=== PATIENT | female | born 1950 | race Caucasian/White ===

== ENCOUNTER 2017-07-12 10:23 | Observation (INO) | payer OTHER ==
[2017-07-12] MEDS ORDERED: PHENAZOPYRIDINE HCL 100 MG TAB PO ONE (12:25)
[2017-07-12] MEDS ORDERED: ceFAZolin 2 GM/DEXTROSE 100 ML IV ONE (12:25)
[2017-07-12] MEDS ORDERED: LIDOCAINE 1% 2 ML INJ ID PRN (12:26)
[2017-07-12] MEDS ORDERED: LR 1,000 ML IV ONE (12:26)
--- NOTE | 2017-07-12 13:38 | PDHPUP ---
History & Physical Update H&P update statement: This history and physical update is based on an assessment of the patient which was completed after admission or registration (within 24 hours), but prior to the surgery/procedure. H&P update: H&P reviewed & patient examined, no change in patient's condition since H&P completed
[2017-07-12] MEDS ORDERED: MIDAZOLAM 2 MG/2 ML VIAL ONE (14:17)
[2017-07-12] MEDS ORDERED: fentaNYL 100 MCG/2 ML INJ ONE ×2 (14:17→15:05)
[2017-07-12] MEDS ORDERED: PROPOFOL/EMULSION 500 MG/50 ML BOTTLE IV ONE (14:17)
[2017-07-12] MEDS ORDERED: BUPIVACAINE 0.5% 30 ML SDV ONE (14:20)
[2017-07-12] MEDS ORDERED: KETOROLAC 30 MG/1 ML SDV ONE (14:33)
[2017-07-12] MEDS ORDERED: SUGAMMADEX SODIUM 200 MG/2 ML VIAL IVP ONE (14:33)
[2017-07-12] MEDS ORDERED: ONDANSETRON 4 MG/2 ML VIAL ONE ×2 (14:33→17:44)
[2017-07-12] MEDS ORDERED: METOCLOPRAMIDE 10 MG/2 ML VIAL ONE (14:33)
[2017-07-12] MEDS ORDERED: RANITIDINE 50 MG/2 ML VIAL ONE (14:33)
[2017-07-12] MEDS ORDERED: epHEDrine SULFATE 10 MG/ML SYR ONE (14:33)
[2017-07-12] MEDS ORDERED: DEXAMETHASONE 4 MG/ML VIAL ONE (14:33)
[2017-07-12] MEDS ORDERED: LIDOCAINE 2% 5 ML SDV ONE (14:33)
[2017-07-12] MEDS ORDERED: ROCURONIUM 50 MG/5 ML VIAL ONE (14:33)
--- NOTE | 2017-07-12 14:49 | PDANEPAE ---
ANE Past Medical History - Cardiovascular History Hx Hypertension: No Hx Arrhythmias: No Hx Chest Pain: No Hx Coronary Artery / Peripheral Vascular Disease: No Hx CHF / Valvular Disease: No Hx Palpitations: No - Pulmonary History Hx COPD: No Hx Asthma/Reactive Airway Disease: No Hx Recent Upper Respiratory Infection: No Hx Oxygen in Use at Home: No Hx Sleep Apnea: No Sleep Apnea Screening Result - Last Documented: Negative - Neurologic History Hx Cerebrovascular Accident: No Hx Seizures: No Hx Dementia: No - Endocrine History Hx Diabetes: No - Renal History Hx Renal Disorders: Yes Renal History Comment: STRESS INCONT - Liver History Hx Hepatic Disorders: No - Neurological & Psychiatric Hx Hx Neurological and Psychiatric Disorders: No - Cancer History Hx Cancer: No - Congenital Disorder History Hx Congenital Disorders: No - GI History Hx Gastrointestinal Disorders: No - Other Health History Other Health History: CYSTOCELE. RECTOCELE - Chronic Pain History Chronic Pain: No - Surgical History Prior Surgeries: BLADDER SUSPENSION . HENNY BUNIONECTOMY. AT [facility] Review of Systems Review of Systems: - Exercise capacity METS (RN): 4 METS ANE Patient History - Allergies Allergies/Adverse Reactions: latex Allergy (Verified 05/19/17 11:19) - Home Medications Home Medications: Herbals/Supplements -Info Only 1 ea PO DAILY 05/19/17 [Last Taken 3 Days Ago ~] - NPO status NPO Since - Liquids (Date): 07/12/17 NPO Since - Liquids (Time): 10:45 NPO Since - Solids (Date): 07/11/17 NPO Since - Solids (Time): 20:00 - Smoking Hx Smoking Status: Former smoker ANE Labs/Vital Signs - Vital Signs Blood Pressure: 125/75 Heart Rate: 56 Respiratory Rate: 20 O2 Sat (%): 95 Height: 165.1 cm Weight: 61.235 kg ANE Physical Exam - Airway Mallampati Score: Class 1 Mouth exam: normal dental/mouth exam - Pulmonary Pulmonary: no respiratory distress, no rales or rhonchi, clear to auscultation - Cardiovascular Cardiovascular: regular rate and rhythym, no murmur, rub, or gallop - ASA Status ASA Status: II ANE Anesthesia Plan Anesthesia Plan: general endotracheal anesthesia
[2017-07-12] MEDS ORDERED: ROCURONIUM 100 MG/10 ML VIAL ONE (15:37)
[2017-07-12] MEDS ORDERED: ALBUTEROL 3 ML DEYVIAL IH PRN (16:06)
[2017-07-12] MEDS ORDERED: LR 500 ML IV PRN (16:06)
[2017-07-12] MEDS ORDERED: NALOXONE HCL 0.4 MG/ML INJ IVP PRN (16:06)
[2017-07-12] MEDS ORDERED: MEPERIDINE 25 MG/ML SYR IVP PRN (16:06)
[2017-07-12] MEDS ORDERED: DEXAMETHASONE 4 MG/ML VIAL IVP PRN (16:06)
[2017-07-12] MEDS ORDERED: METOCLOPRAMIDE 10 MG/2 ML VIAL IVP PRN (16:06)
[2017-07-12] MEDS ORDERED: ONDANSETRON 4 MG/2 ML VIAL IVP PRN ×2 (16:06→17:03)
[2017-07-12] MEDS ORDERED: PROMETHAZINE HCL 25 MG/ML INJ IVP PRN ×2 (16:06→17:06)
[2017-07-12] MEDS ORDERED: fentaNYL 100 MCG/2 ML INJ IVP PRN (16:06)
[2017-07-12] MEDS ORDERED: OXYCODONE/APAP 5/325 TAB PO PRN (17:03)
[2017-07-12] MEDS ORDERED: HYDROCODONE/APAP 5/325 TAB PO PRN (17:03)
[2017-07-12] MEDS ORDERED: HYDROmorphONE/DILAUDID 1 MG/ML INJ IVP PRN (17:06)
[2017-07-12] MEDS ORDERED: DIAZEPAM 10 MG/2 ML SYR IVP PRN (17:06)
[2017-07-12] MEDS ORDERED: LR 1,000 ML IV SCH (17:30)
[2017-07-12] MEDS ORDERED: PROMETHAZINE HCL 25 MG/ML INJ ONE (17:56)
[2017-07-12] MEDS ORDERED: MEPERIDINE 25 MG/ML SYR ONE (18:09)
[2017-07-12] MEDS: DOCUSATE SODIUM 100 MG CAP PO SCH (20:48)
[2017-07-12] MEDS: SIMETHICONE 80 MG TAB CHEW PO SCH ×2 (20:48→23:23)
[2017-07-12] MEDS: KETOROLAC 15 MG/1 ML SDV IVP SCH (23:24)
--- NOTE | 2017-07-13 05:26 | GOP ---
[f rep st] OPERATIVE REPORT DATE OF OPERATION: 07/12/2017 SURGEON: Davy Baptiste MD WIRE COINER: Tri Mallory CFA. ANESTHESIA: General. PREOPERATIVE DIAGNOSIS: 1. Cystocele. 2. Uterine prolapse. 3. Rectocele. 4. Stress urinary incontinence. 5. Fecal incontinence. POSTOPERATIVE DIAGNOSIS: 1. Cystocele. 2. Uterine prolapse. 3. Rectocele. 4. Stress urinary incontinence. 5. Fecal incontinence. PROCEDURE PERFORMED: 1. Robotic assisted laparoscopic hysterectomy, bilateral salpingectomy. 2. Robotic assisted laparoscopic sacrocervicopexy with mesh. 3. Repair of cystocele and rectocele. 4. Transobturator sling. 5. Anal sphincteroplasty. 6. Perineoplasty. 7. Cystoscopy. FINDINGS: SPECIMENS: Uterus, bilateral tubes. ESTIMATED BLOOD LOSS: 20 mL. DESCRIPTION OF PROCEDURE: The patient was taken the operating room where she was identified. General anesthesia was administered and found to be adequate. She was placed in the lithotomy position and prepared and draped in normal sterile fashion. A Tatum catheter was placed in her bladder. A 1 cm infraumbilical incision was made with a scalpel. The Veress needle with CO2 gas flowing was advanced into the peritoneal cavity. The abdomen was then insufflated with carbon dioxide gas. The 12 mm trocar followed by the laparoscope was then inserted. The upper abdomen was unremarkable. Two lateral ports placed on either side under direct visualization. She then was placed in Trendelenburg position and the da Angie robot docked on the left side. The instruments were then brought into the abdominal cavity under direct visualization. The sigmoid colon was adherent to the left pelvic brim, adnexa and left ovarian fossa. It was taken down sharply. The uterus tubes and ovaries were otherwise grossly unremarkable. The left fallopian tube was along the mesosalpinx. The utero-ovarian ligament, followed by the round ligament were then cauterized and transected. The anterior leaf of the broad ligament was then incised over the left uterine vessels and across the cervix. The bladder was then gently dissected off the cervix and upper vagina. The left uterine vasculature was then cauterized and transected. The exact same procedure was performed on the patient's right side. The uterus was then bivalved to aid in removal through the umbilicus. The uterus and up to 2/3 of the cervix were amputated from the lower third of the cervix with the hot thais. The specimen was placed in the right upper quadrant for later removal. The Colpo-Probe was then placed in the vagina. The bladder was further dissected off the anterior vaginal wall down to the level of the bladder neck. The rectovaginal space was then entered and the rectum dissected off the posterior vaginal wall down to the level of the perineal body. Measurements were then obtained and the mesh trimmed to size. The peritoneum over the sacral promontory was incised. The fat pad was gently dissected off the anterior longitudinal ligament. The mesh was then brought into the abdominal cavity. Three sutures of 4-0 Bruno-Derrek were used to attach the distal posterior mesh to the perineal body. Two additional rows of Bruno- Derrek sutures were placed posteriorly. Three rows were placed anteriorly to suture the anterior arm of the mesh down to the level of the bladder neck and laterally to the paravaginal tissue. The Colpo-Probe was then removed. The sacral arm of the mesh was placed over the promontory and the tension adjusted. I then scrubbed back into the case to examine the vagina. The tension was further adjusted to resolve the cystocele and rectocele without undue tension on the vagina. Two sutures of 2-0 Bruno-Derrek were used to attach the sacral arm of the mesh to the anterior longitudinal ligament at the level of the upper first sacral vertebral body below the intervertebral disk space. The excess mesh was then trimmed. The peritoneum was then closed over the entire mesh with 3-0 V-Loc 90 suture. The robot was then undocked. The specimen removed through the umbilicus. The fascia was closed with 0 Vicryl, skin with 4-0 Monocryl and surgical adhesive. Attention was then turned to the sling portion of the procedure. A mid urethral incision was made with a scalpel. Tunnels were created bilaterally up to the obturator internus muscles. Skin incisions were made over the obturator notches. The Halo trocar was placed through the left skin incision, redirected around the ischial pubic rami and down through the vaginal incision using a vaginal finger as our guide. The lateral sulci were examined and no evidence of vaginal injury had occurred. The sling was then attached and brought out on same course. The exact same procedure was performed on the patient's right side. The sling was then adjusted to allow a small mid urethral gap. The vaginal epithelium was closed with 2-0 Vicryl. The skin with 4-0 Monocryl. Cystoscopy was then performed. Both ureters had vigorous jets of urine. There was no evidence of bladder nor urethral injury seen. No mesh nor suture was seen within the bladder nor urethra. No obvious pathology was seen. A transverse incision was then made along the perineal body. The posterior vaginal epithelium was undermined with the Metzenbaum scissors and incised sagittally. The epithelium was then gently dissected off the underlying rectovaginal connective tissue. The dissection was then carried down towards the anus. The ends of a thinned external anal sphincter muscle were then gently dissected free bilaterally. An overlapping sphincteroplasty was then performed with interrupted sutures of 0 Vicryl. The posterior rectovaginal connective tissue was then also plicated in the midline with interrupted sutures of 0 Vicryl. The transverse perineal muscle, and bulbous spongiosis muscle were plicated in the midline. The excess of epithelium was then trimmed. The vaginal epithelium was closed with a running 2-0 Vicryl suture. The skin overlying the perineal body and anal sphincter were closed with interrupted sutures of 0 Vicryl. Vaginal packing was then placed. Anesthesia was reversed and patient taken the PACU awake, in stable condition. SURGEON: Davy Baptiste MD COMPLICATIONS: None. DISPOSITION: Patient stable to PACU. /[id number]/MODL MTDD
[2017-07-13 05:51] LABS: HEMOGLOBIN 12.1 g/dL (12.6-16.3)
[2017-07-13 06:13] VITALS: RESP 16
[2017-07-13] MEDS: KETOROLAC 15 MG/1 ML SDV IVP SCH (07:23)
[2017-07-13 08:52] VITALS: BP 90/60; PULSE 66; TEMP 98.4; O2SAT 94
[2017-07-13] MEDS: DOCUSATE SODIUM 100 MG CAP PO SCH (10:16)
[2017-07-13] MEDS: SIMETHICONE 80 MG TAB CHEW PO SCH (10:57)
--- NOTE | 2017-07-14 08:18 | GDS ---
[f rep st] DISCHARGE SUMMARY DISCHARGE DIAGNOSES: 1. Uterovaginal prolapse. 2. Stress urinary incontinence. 3. Fecal incontinence. PROCEDURES: 1. Robotic-assisted laparoscopic hysterectomy, bilateral salpingectomy. 2. Robotic-assisted laparoscopic sacrocervicopexy with mesh. 3. Transobturator sling. 4. Anal sphincteroplasty. 5. Cystoscopy. HISTORY: The patient is a 67-year-old female with symptomatic prolapse. She was taken to the operat ing room on 07/12/2017 where she underwent the above-mentioned procedures without complications. Her postoperative course was uneventful. The morning after surgery, she was ambulating, voiding, and tolerating a general diet. She had minimal pain. She was discharged home on postoperative day #1 i n good condition. She was discharged home with ibuprofen and Tylenol for pain. She had a followup a ppointment in the office 2 weeks after discharge. /[id number]/MODL
== END 2017-07-13 10:58 | disposition home or self-care (01) ==
LOC: F3E 11:51 → FOB 18:45
PROVIDERS: ADMIT Obstetrics & Gynecology; ATTEND Obstetrics & Gynecology
PROC: 0TQB4ZZ Repair Bladder, Percutaneous Endoscopic Approach (ICD-10-PCS; principal; 2017-07-12 13:45)
PROC: 0UT74ZZ Resection of Bilateral Fallopian Tubes, Percutaneous Endoscopic Approach (ICD-10-PCS; principal; 2017-07-12 13:45)
PROC: 0DQR0ZZ Repair Anal Sphincter, Open Approach (ICD-10-PCS; principal; 2017-07-12 13:45)
PROC: 0WQN0ZZ Repair Female Perineum, Open Approach (ICD-10-PCS; principal; 2017-07-12 13:45)
PROC: 0UQG4ZZ Repair Vagina, Percutaneous Endoscopic Approach (ICD-10-PCS; principal; 2017-07-12 13:45)
PROC: 0TUC0JZ Supplement Bladder Neck with Synthetic Substitute, Open Approach (ICD-10-PCS; principal; 2017-07-12 13:45)
PROC: 0UT94ZZ Resection of Uterus, Percutaneous Endoscopic Approach (ICD-10-PCS; principal; 2017-07-12 13:45)
PROC: 8E0W4CZ Robotic Assisted Procedure of Trunk Region, Percutaneous Endoscopic Approach (ICD-10-PCS; principal; 2017-07-12 13:45)
DX: N81.3 Complete uterovaginal prolapse (principal); N39.3 Stress incontinence (female) (male); R15.9 Full incontinence of feces
CPT/HCPCS: 46750; 56810; 57288; 57423; 58542; C1763; C1771; J0690; J1100; J1885; J2250; J2405; J2550; J2704; J2765; J2780; J3010

== ENCOUNTER 2018-07-16 18:14 | Emergency (ER) | payer OTHER ==
[2018-07-16] MEDS ORDERED: PROPARACAINE/FLUORESCEIN SOD 5 ML OPHT.BTL ONE (19:42)
[2018-07-16] MEDS ORDERED: OFLOXACIN 0.3% SOLN PREPACK OPHT.BTL TAKEHOME ONE (19:54)
--- NOTE | 2018-07-16 19:56 | EDPHY ---
H & P Stated Complaint: POKED SELF IN EYE WITH STALK OF GRASS/?BLEEDING Time Seen by Provider: 07/16/18 19:45 HPI/ROS: CHIEF COMPLAINT: Eye injury HISTORY OF PRESENT ILLNESS: Patient is a 68-year-old female who comes to the emergency department complaining of a eye injury to her left eye. She states that she was bending over in the tall grass in [employer] when a stock of grass poked her in the left eye. She has significant hemorrhage of the conjunctiva. She also felt she might have a foreign body. She states that her vision has not changed. She does were glasses which she was wearing at the time. No contacts. No other injuries. Severity: Moderate Modifying factors: None REVIEW OF SYSTEMS: Constitutional: denies: chills, fever, recent illness, recent injury EENTM: See HPI Respiratory: denies: cough, shortness of breath Cardiac: denies: chest pain, irregular heart rate, lightheadedness, palpitations Gastrointestinal/Abdominal: denies: abdominal pain, diarrhea, nausea, vomiting, blood streaked stools Genitourinary: denies: dysuria, frequency, hematuria, pain Musculoskeletal: denies: joint pain, muscle pain Skin: denies: lesions, rash, jaundice, bruising Neurological: denies: headache, numbness, paresthesia, tingling, dizziness, weakness Hematologic/Lymphatic: denies: blood clots, easy bleeding, easy bruising Immunologic/allergic: denies: HIV/AIDS, transplant 10 systems reviewed and negative except as noted EXAM: GENERAL: Well-appearing, well-nourished and in no acute distress. HEAD: Atraumatic, normocephalic. EYES: Visual acuities baseline, subconjunctival on the left eye nasal aspect 180 degrees. Some hematoma. Minimal better drainage that is now dry. Examined with fluorescein and slit lamp. Small corneal abrasion also seen. Negative Amari sign. Pupils equal round and reactive to light, extraocular movements intact, ENT: TMs normal, nares patent, oropharynx clear without exudates. Moist mucous membranes. NECK: Normal range of motion, supple without lymphadenopathy or JVD. LUNGS: Breath sounds clear to auscultation bilaterally and equal. No wheezes rales or rhonchi. HEART: Regular rate and rhythm without murmurs, rubs or gallops. ABDOMEN: Soft, nontender, normoactive bowel sounds. No guarding, no rebound. No masses appreciated. BACK: No CVA tenderness, no spinal tenderness, step-offs or deformities EXTREMITIES: Normal range of motion, no pitting or edema. No clubbing or cyanosis. NEUROLOGICAL: Cranial nerves II through XII grossly intact. Normal speech, normal gait. 5/5 strength, normal movement in all extremities, normal sensation , normal reflexes PSYCH: Normal mood, normal affect. SKIN: Warm, dry, normal turgor, no visible rashes or lesions. Source: Patient Exam Limitations: No limitations - Personal History Current Tetanus Diphtheria and Acellular Pertussis (TDAP): Yes - Medical/Surgical History Hx Asthma: No Hx Chronic Respiratory Disease: No Hx Diabetes: No Hx Cardiac Disease: No Hx Renal Disease: No Hx Cirrhosis: No Hx Alcoholism: No Hx HIV/AIDS: No Hx Splenectomy or Spleen Trauma: No Other PMH: DENIES - Family History Significant Family History: No pertinent family hx - Social History Smoking Status: Former smoker Alcohol Use: Sober Drug Use: None Constitutional: Initial Vital Signs Temperature (C) 37.1 C 07/16/18 18:22 Heart Rate 84 07/16/18 18:22 Respiratory Rate 17 07/16/18 18:22 Blood Pressure 119/74 07/16/18 18:22 O2 Sat (%) 97 07/16/18 18:22 O2 Delivery Mode Room Air Allergies/Adverse Reactions: latex Allergy (Verified 07/16/18 18:21) Home Medications: Medication Instructions Recorded NK [No Known Home Meds] 07/16/18 Medical Decision Making ED Course/Re-evaluation: Patient has a corneal abrasion and a moderate-size subconjunctival hemorrhage. She states that her vision is a baseline. She denies having significant pain. I do not see a perforated globe or any sign and no foreign body. I will start her on Ocuflox. She already has an appointment with Ophthalmology tomorrow. We discussed indications for returning to the emergency department. Differential Diagnosis: Partial list of the Differential diagnosis considered include but were not limited to; corneal abrasion, subconjunctival hemorrhage, foreign body and although unlikely based on the history and physical exam, I also considered perforation, glaucoma, iritis. I discussed these differential diagnoses and the plan with the patient as well as the usual and expected course. The patient understands that the diagnosis is provisional and that in medicine we are not always correct and that further workup is often warranted. Usual and customary warnings were given. All of the patient's questions were answered. The patient was instructed to return to the emergency department should the symptoms at all worsen or return, otherwise to followup with the physician as we discussed. - Data Points Medications Given: Discontinued Medications Ofloxacin (Ocuflox 0.3% Opht Drops Prepack) 1 btl TAKEHOME EDNOW ONE Stop: 07/16/18 19:55 Last Admin: 07/16/18 20:03 Dose: 1 btl Departure - Departure Disposition: Home, Routine, Self-Care Clinical Impression: Subconjunctival hematoma Qualifiers: Laterality: left Qualified Code(s): H11.32 - Conjunctival hemorrhage, left eye Corneal abrasion, left Qualifiers: Encounter type: initial encounter Qualified Code(s): S05.02XA - Injury of conjunctiva and corneal abrasion without foreign body, left eye, initial encounter Condition: Fair Instructions: Ofloxacin (Into the eye), Corneal Abrasion (ED) Additional Instructions: You have a corneal abrasion and subconjunctival hematoma. Follow up with the eye doctor tomorrow as planned. Take the Ocuflox 2 drops every 4 hr until you see your store receiver. Referrals: NONE *PRIMARY CARE P,. [Primary Care Provider] - As per Instructions Guille Granda MD [Medical Doctor] - 1-2 days without fail
[2018-07-16 20:10] VITALS: BP 121/72
== END 2018-07-16 20:10 | disposition home or self-care (01) ==
DX: S05.02XA Injury of conjunctiva and corneal abrasion without foreign body, left eye, initial encounter (principal); W26.8XXA Contact with other sharp object(s), not elsewhere classified, initial encounter; Y93.89 Activity, other specified